=== PATIENT | female | born 1945 | race Caucasian/White ===

== ENCOUNTER 2017-04-05 14:11 | Emergency (ER) | payer MEDICARE, OTHER ==
[~2017-04-05] VITALS: Ht 162.6 cm; Wt 60.9 kg
[~2017-04-05 14:11] MED LIST: ALENDRONATE70 MG PO; APAP/CODEINE1 TAB PO; ASPIRIN325 MG PO; ASPIRIN81 MG PO; AVELOX400 MG PO; CEPHALEXIN500 MG OR; COMPAZINE5 MG/TAB OR; DUONEB IN; EFFIENT10 MG OR; GLYB/METFORM PO; GLYBURIDE5 MG PO; HOME NEBULIZER; LEVAQUIN750 MG PO; LIORESAL10 MG/TA1 PO; LISINOPRIL20 M1 OR; LORTAB 10-325 M1 TAB PO; LORTAB 5 OR; MEDDOSEPAK PO; MELOXICAM15 MG OR; METFORMIN500 MG OR; METFORMIN500 MG PO; METOPROL TAR25 MG PO; NO MEDS; PRAVASTATIN40 MG OR; SYMBICORT1 AE1 IN; TESSALON PER100 MG PO; ULTRAM50 MG OR; VESICARE5 MG OR; VITAMIN D50000 UN1 OR
[2017-04-05 15:06] LABS: HEMATOCRIT 36.5 % (37.0-47.0); HEMOGLOBIN 11.5 g/dl (12.0-16.0); IMMATURE GRANULOCYTES 0.6 % (0.0-1.0); MEAN CELL VOLUME 84.7 fL CALC (80.0-100.0); MEAN CORPUSCULAR HGB 26.7 pG CALC (26.0-32.0); MEAN CORPUSCULAR HGB CONC 31.5 g/L CALC (32.0-36.0); NEUT# 4.69 thou/uL (2.00-7.15); RED BLOOD COUNT 4.31 mill/uL (4.20-5.60); RED CELL DISTRI WIDTH 19.6 % (11.5-15.5)
[2017-04-05 15:20] LABS: ALBUMIN 4.1 g/dL (3.2-5.0); ALKALINE PHOSPHATASE 51 u/l (38-126); ANION GAP 17 (6-22 (CALC)); BILIRUBIN, TOTAL 0.4 mg/dL (0.0-1.4); BUN 16 mg/dL (8-23); BUN/CREATININE RATIO 24 (12-20 (CALC)); CARBON DIOXIDE 21 mmol/l (22-30); CHLORIDE 102 mmol/l (95-108); CREATININE 0.7 mg/dL (0.5-1.0); GFR > 60 ML/MIN (>=60 (CALC)); GFR FOR AFR.AMER. > 60 ML/MIN (>=60 (CALC)); POTASSIUM 4.6 mmol/l (3.5-5.1); SGOT/AST 39 u/l (9-36); SGPT/ALT 22 u/l (11-66); SODIUM 136 mmol/l (137-146); TOTAL PROTEIN 7.3 g/dL (6.3-8.2)
[2017-04-05 16:35] LABS: INFLUENZA A NONE DETECTED (NONE DETECT); INFLUENZA B NONE DETECTED (NONE DETECT)
[2017-04-05] MEDS ORDERED: ZITHROMAX250 MG PO (17:02)
[2017-04-05 18:06] VITALS: BP 106/53
== END 2017-04-05 18:09 | disposition home or self-care (01) ==
LOC: ED 14:11
PROVIDERS: Emergency Medicine
DX: J44.1 Chronic obstructive pulmonary disease with (acute) exacerbation (principal); B34.9 Viral infection, unspecified; F17.210 Nicotine dependence, cigarettes, uncomplicated; R06.02 Shortness of breath

== ENCOUNTER 2017-04-07 08:58 | Observation (INO) | payer MEDICARE, OTHER ==
[~2017-04-07] VITALS: Ht 162.6 cm; Wt 61.4 kg
[~2017-04-07 08:58] MED LIST changes: +ZITHROMAX250 MG PO
[2017-04-07 09:32] LABS: HEMATOCRIT 38.9 % (37.0-47.0); HEMOGLOBIN 12.3 g/dl (12.0-16.0); IMMATURE GRANULOCYTES 0.5 % (0.0-1.0); MEAN CELL VOLUME 83.8 fL CALC (80.0-100.0); MEAN CORPUSCULAR HGB 26.5 pG CALC (26.0-32.0); MEAN CORPUSCULAR HGB CONC 31.6 g/L CALC (32.0-36.0); NEUT# 5.12 thou/uL (2.00-7.15); RED BLOOD COUNT 4.64 mill/uL (4.20-5.60); RED CELL DISTRI WIDTH 19.9 % (11.5-15.5)
[2017-04-07 09:46] LABS: INFLUENZA A NONE DETECTED (NONE DETECT); INFLUENZA B NONE DETECTED (NONE DETECT)
[2017-04-07 09:50] LABS: ANION GAP 19 (6-22 (CALC)); BUN 19 mg/dL (8-23); BUN/CREATININE RATIO 27 (12-20 (CALC)); CARBON DIOXIDE 23 mmol/l (22-30); CHLORIDE 102 mmol/l (95-108); CREATININE 0.7 mg/dL (0.5-1.0); GFR > 60 ML/MIN (>=60 (CALC)); GFR FOR AFR.AMER. > 60 ML/MIN (>=60 (CALC)); POTASSIUM 4.4 mmol/l (3.5-5.1); SODIUM 140 mmol/l (137-146)
[2017-04-07] MEDS ORDERED: METO25TAB PO (10:36)
[2017-04-07] MEDS ORDERED: PRAVASTATIN20 MG PO (10:36)
[2017-04-07] MEDS ORDERED: GLIPIZIDE5 MG PO (10:38)
[2017-04-07] MEDS ORDERED: ASPIRIN81 MG PO (10:39)
[2017-04-07] MEDS ORDERED: AMBIEN5 MG PO (10:39)
[2017-04-07] MEDS ORDERED: CLOPIDOGREL75 MG PO (10:40)
[2017-04-07] MEDS ORDERED: TRAMADOL HCL50 MG PO (10:40)
[2017-04-07] MEDS ORDERED: METFORMIN500 MG PO (10:41)
[2017-04-07 13:13] VITALS: BP 113/62
[2017-04-07 16:00] VITALS: BP 110/44
[2017-04-07 19:50] VITALS: BP 118/52
[2017-04-08] VITALS: BP 112/43
[2017-04-08 05:00] VITALS: BP 119/53
[2017-04-08 05:50] LABS: HEMOGLOBIN 10.8 g/dl (12.0-16.0); MEAN CELL VOLUME 84.2 fL CALC (80.0-100.0); MEAN CORPUSCULAR HGB 26.7 pG CALC (26.0-32.0); MEAN CORPUSCULAR HGB CONC 31.8 g/L CALC (32.0-36.0); RED BLOOD COUNT 4.04 mill/uL (4.20-5.60); RED CELL DISTRI WIDTH 19.4 % (11.5-15.5)
[2017-04-08 08:00] VITALS: BP 114/48
[2017-04-08 10:55] VITALS: BP 138/64
[2017-04-08 14:24] LABS: CHOLESTEROL HDL RATIO 2.4 (<4.4 (CALC))
[2017-04-08 14:56] VITALS: BP 128/54
[2017-04-08 19:37] VITALS: BP 101/58
[2017-04-09 01:00] VITALS: BP 120/60
[2017-04-09 05:05] VITALS: BP 107/81
[2017-04-09 05:55] LABS: HEMATOCRIT 34.3 % (37.0-47.0); HEMOGLOBIN 10.7 g/dl (12.0-16.0); MEAN CELL VOLUME 84.5 fL CALC (80.0-100.0); MEAN CORPUSCULAR HGB 26.4 pG CALC (26.0-32.0); MEAN CORPUSCULAR HGB CONC 31.2 g/L CALC (32.0-36.0); RED BLOOD COUNT 4.06 mill/uL (4.20-5.60); RED CELL DISTRI WIDTH 19.5 % (11.5-15.5)
[2017-04-09 07:17] VITALS: BP 143/60
[2017-04-09 10:40] VITALS: BP 146/56
[2017-04-09] MEDS ORDERED: LEVAQUIN750 MG PO (11:06)
[2017-04-09] MEDS ORDERED: PREDNISONE20 MG PO (11:07)
== END 2017-04-09 16:48 | disposition home health service (06) ==
LOC: ED 08:58 → ED-I 10:34 → ED 11:38 → MS2 11:39
PROVIDERS: Family Medicine; Nurse Practitioner Family; ADMIT Internal Medicine; ATTEND Internal Medicine
DX: J44.1 Chronic obstructive pulmonary disease with (acute) exacerbation (principal); I25.10 Atherosclerotic heart disease of native coronary artery without angina pectoris; I11.9 Hypertensive heart disease without heart failure; E11.9 Type 2 diabetes mellitus without complications; I25.2 Old myocardial infarction; Z95.1 Presence of aortocoronary bypass graft; Z95.5 Presence of coronary angioplasty implant and graft; Z87.891 Personal history of nicotine dependence; Z79.84 Long term (current) use of oral hypoglycemic drugs; Z79.02 Long term (current) use of antithrombotics/antiplatelets; Z79.82 Long term (current) use of aspirin; R07.1 Chest pain on breathing
CPT/HCPCS: J0692; Q9967

== ENCOUNTER 2018-04-20 09:00 | Outpatient (RCR) | payer MEDICARE, OTHER ==
[~2018-04-20 09:00] MED LIST changes: +AMBIEN5 MG PO; +CLOPIDOGREL75 MG PO; +GLIPIZIDE5 MG PO; +METO25TAB PO; +PRAVASTATIN20 MG PO; +PREDNISONE20 MG PO; +TRAMADOL HCL50 MG PO
== END 2018-04-25 08:33 | disposition home or self-care (01) ==
LOC: PT 09:00
DX: M54.5 Low back pain (principal)

== ENCOUNTER 2020-04-20 14:34 | Emergency (ER) | payer MEDICARE, OTHER ==
[~2020-04-20] VITALS: Ht 162.6 cm; Wt 60.0 kg
[2020-04-20 17:24] VITALS: BP 131/68
== END 2020-04-20 17:22 | disposition home or self-care (01) ==
LOC: ED 14:34
DX: S01.01XA Laceration without foreign body of scalp, initial encounter (principal); J44.9 Chronic obstructive pulmonary disease, unspecified; E11.9 Type 2 diabetes mellitus without complications; I10 Essential (primary) hypertension; I25.2 Old myocardial infarction; F17.200 Nicotine dependence, unspecified, uncomplicated; W01.0XXA Fall on same level from slipping, tripping and stumbling without subsequent striking against object, initial encounter; Y93.H2 Activity, gardening and landscaping; Y92.007 Garden or yard of unspecified non-institutional (private) residence as the place of occurrence of the external cause; Z95.1 Presence of aortocoronary bypass graft; Z95.5 Presence of coronary angioplasty implant and graft; Z79.84 Long term (current) use of oral hypoglycemic drugs